=== PATIENT | male | born 1955 | race Caucasian/White ===

== ENCOUNTER 2022-09-14 08:31 | Emergency (ER) | payer BC, MEDICARE ==
[~2022-09-14] VITALS: Ht 193 cm; Wt 100.9 kg
--- OUTSIDE RECORDS SUMMARY | 2022-09-14 08:34 | XMS ---
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 Tomasz VIS[facility] COUNT (12 MO.) [facility] [place] [facility] 1 SARAH [facility] TOTAL 6 NOTE: Visits indicate total known visits. ED/UCC VISIT TRACKING (12 MO.) 09/14/2022 08:33 SARAH Langford TYPE: Emergency COMPLAINT: - BACK PAIN/INJURY 11/21/2021 12:38 [facility] Ginny ROTH TYPE: Emergency DIAGNOSES: 14728. NEEDS NEW DRESSING CHANGE FOR PICC-LINE 11/19/2021 14:34 [facility] TYPE: Emergency COMPLAINT: - Wound Check DIAGNOSES: - Wound Check 11/18/2021 13:[facility] [place] [facility] DIAGNOSES: 40798. IV ISSUE . Presence of other vascular implants and grafts 11/18/2021 11:48 [facility] [place] [facility] DIAGNOSES: 14308. IV ISSUE 09/19/2021 10:03 [facility] [place] [facility] DIAGNOSES: 43185. L KNEE PAIN/SWELLING NKI . Presence of left artificial knee joint . Pyogenic arthritis, unspecified INPATIENT VISIT TRACKING (12 MO.) 09/23/2021 21:23 [place] [facility] [place] TYPE: Orthopedic DIAGNOSES: - Pyogenic arthritis, unspecified - Staphylococcal arthritis, left knee [facility] DIAGNOSES: 61482. Presence of left artificial knee joint 24553. Pyogenic arthritis, unspecified [email or web address]
[2022-09-14] MEDS ORDERED: DICLOFENAC SOD100 GM TOP (08:46)
[2022-09-14] MEDS ORDERED: LISINOPRIL40 MG PO (08:46)
[2022-09-14] MEDS ORDERED: GABAPENTIN800 MG PO (08:46)
[2022-09-14] MEDS ORDERED: CITALOPRAM HBR40 MG PO (08:46)
[2022-09-14] MEDS ORDERED: HYDROCODON-ACE1 EAC8 PO (08:46)
[2022-09-14] MEDS ORDERED: OMEPRAZOLE20 MG PO (08:47)
[2022-09-14] MEDS ORDERED: PREDNISONE20 MG PO (10:16)
[2022-09-14] MEDS ORDERED: PERCOCET 5-3251 EACH PO (10:16)
== END 2022-09-14 10:25 | disposition home or self-care (01) ==
LOC: ED 08:31
DX: M54.41 Lumbago with sciatica, right side (principal); Z79.899 Other long term (current) drug therapy
CPT/HCPCS: 96372; 99283; J1100; J1885